=== PATIENT | male | born 1950 | race Caucasian/White ===

== ENCOUNTER 2018-01-06 08:39 | Emergency (ER) | payer OTHER, BC ==
[~2018-01-06] VITALS: Ht 175.3 cm; Wt 88.5 kg
[2018-01-06 08:41] VITALS: BP_SYST 157
--- NOTE | 2018-01-06 08:41 | NUR ---
Patient to ER bed 7, triaged at bedside.
--- NOTE | 2018-01-06 08:57 | NUR ---
ER Dr. Gupta at bedside examining patient.
[2018-01-06] MEDS ORDERED: KETOROLAC TROMETHAMINE 30 MG VIAL IVP ONE (09:00)
[2018-01-06 09:06] LABS: BILIRUBIN,URINE NEGATIVE (NEGATIVE); BLOOD, URINE 3+ (NEGATIVE); CLARITY/URINE CLOUDY (CLEAR); COLOR,URINE BROWN (YELLOW); GLUCOSE,URINE NEGATIVE (NEGATIVE); KETONES,URINE TRACE (NEGATIVE); LEUKOCYTE ESTERASE ,URINE TRACE (NEGATIVE); NITRITE, URINE POSITIVE (NEGATIVE); PH,URINE 6.5 (5.0-8.0); PROTEIN URINE 2+ (NEGATIVE)
--- NOTE | 2018-01-06 09:10 | NUR ---
Pt presents to ER c/o R flank pain 6/10 on pain scale that radiates to lower abdomen. Pt reports that pain began around 0600 this morning, also reports some nausea but denies vomiting. Pt denies any chest pain or sob. Pt in no acute distress, speaking full sentences, AOX4, ambulatory.
[2018-01-06] MEDS ORDERED: NACL 0.9% 1,000 ML IV ONE (09:15)
--- NOTE | 2018-01-06 09:19 | NUR ---
Pt returned from radiology in stable condition.
--- NOTE | 2018-01-06 09:34 | NUR ---
# 20 gauge angiocath placed to LAC. Use of asceptic technique. Opsite placed over site. Blood return noted. Blood for lab drawn from site. Flushed with 10 cc of normal saline. No evidence of infiltration noted. Patient tolerated well.
--- NOTE | 2018-01-06 09:40 | NUR ---
Pt medicated and tolerated well; will continue to monitor.
[2018-01-06 09:56] LABS: BACTERIA,URINE FEW /HPF (None Seen); RBC,URINE 80-100 /HPF (0-3)
[2018-01-06 09:57] LABS: MUCUS,URINE None Seen /LPF (None Seen); YEAST,URINE None Seen /HPF (None Seen)
[2018-01-06] MEDS ORDERED: cefTRIAXone 1 GM IVPB PREMIX 50 ML IV ONE (10:15)
--- NOTE | 2018-01-06 10:15 | NUR ---
Pt reports pain level down to 2/10 on pain scale. Will continue to monitor.
[2018-01-06 10:26] LABS: CALCIUM 9.7 mg/dL (8.4-11.0); CREATININE 0.99 mg/dL (0.55-1.30); POTASSIUM 3.5 mmol/L (3.5-5.1)
[2018-01-06 10:31] LABS: ALBUMIN 3.5 g/dL (3.4-4.8); TOTAL BILIRUBIN 0.7 mg/dL (0.0-1.0)
[2018-01-06 10:36] LABS: BASOPHILS % (AUTO) 0.1 % (0.0-2.0); EOSINOPHILS % (AUTO) 0.2 % (0.0-4.0); HEMATOCRIT 46.6 % (36-54); HEMOGLOBIN 15.9 g/dL (14.0-18.0); LYMPHOCYTES # (AUTO) 0.5 K/uL (1.0-5.5); LYMPHOCYTES % (AUTO) 5.5 % (20.5-51.5); MEAN CORPUSCULAR HEMOGLOBIN 29 pg (27-31); MEAN CORPUSCULAR HGB CONC 34 % (32-36); MEAN CORPUSCULAR VOLUME 84 fL (79.0-98.0); MONOCYTES # (AUTO) 0.3 K/uL (0.0-1.0); MONOCYTES % (AUTO) 3.6 % (1.7-9.3); NEUTROPHILS # (AUTO) 7.4 K/uL (1.8-7.7); NEUTROPHILS % (AUTO) 90.6 % (40.0-70.0); PLATELET COUNT (AUTO) 265 K/uL (130-430); RED BLOOD CELL COUNT(AUTO) 5.54 MIL/uL (4.2-6.2); RED CELL DISTRIBUTION WIDTH 13.5 % (9.0-15.0); WHITE BLOOD COUNT (AUTO) 8.2 K/uL (4.8-10.8)
[2018-01-06 10:50] VITALS: BP_SYST 144
--- NOTE | 2018-01-06 10:50 | NUR ---
Patient given written and verbal discharge instructions and verbalizes understanding. ER MD discussed with patient the results and treatment provided. Patient in stable condition. ID arm band removed. IV catheter removed intact and dressing applied, no active bleeding. Rx of Toradol and Cipro given. Patient educated on pain management and to follow up with PMD. Pain Scale 0. Opportunity for questions provided and answered. Medication side effect fact sheet provided.
== END 2018-01-06 10:50 | disposition home or self-care (01) ==
LOC: SED 08:39
DX: N20.0 Calculus of kidney (principal); N39.0 Urinary tract infection, site not specified; I10 Essential (primary) hypertension
CPT/HCPCS: 36415; 74176; 80053; 81000; 85025; 87086; 96365; 96375; 99285; J0696; J1885; J7030

== ENCOUNTER 2020-12-16 17:57 | Emergency (ER) | payer OTHER, MEDICARE ==
[~2020-12-16] VITALS: Ht 175.3 cm; Wt 81.6 kg
[2020-12-16 18:15] VITALS: BP_SYST 139
[2020-12-16] MEDS ORDERED: KETOROLAC TROMETHAMINE 60 MG/2 ML VIAL IM ONE (18:30)
[2020-12-16] MEDS ORDERED: KETOROLAC TROMETHAMINE 30 MG VIAL IVP ONE (18:30)
[2020-12-16] MEDS ORDERED: KETOROLAC TROMETHAMINE 30 MG VIAL ONE (18:35)
[2020-12-16 18:47] LABS: BASOPHILS % (AUTO) 0.5 % (0.0-2.0); EOSINOPHILS # (AUTO) 0.1 K/uL (0.0-0.4); EOSINOPHILS % (AUTO) 0.9 % (0.0-4.0); HEMATOCRIT 51.1 % (36-54); HEMOGLOBIN 16.8 g/dL (14.0-18.0); LYMPHOCYTES # (AUTO) 1.4 K/uL (1.0-5.5); LYMPHOCYTES % (AUTO) 15.3 % (20.5-51.5); MEAN CORPUSCULAR HEMOGLOBIN 29 pg (27-31); MEAN CORPUSCULAR HGB CONC 33 % (32-36); MEAN CORPUSCULAR VOLUME 87 fL (79.0-98.0); MONOCYTES # (AUTO) 0.6 K/uL (0.0-1.0); MONOCYTES % (AUTO) 6.7 % (1.7-9.3); NEUTROPHILS # (AUTO) 7.2 K/uL (1.8-7.7); NEUTROPHILS % (AUTO) 76.6 % (40.0-70.0); PLATELET COUNT (AUTO) 272 K/uL (130-430); RED BLOOD CELL COUNT(AUTO) 5.88 MIL/uL (4.2-6.2); RED CELL DISTRIBUTION WIDTH 15.1 % (9.0-15.0); WHITE BLOOD COUNT (AUTO) 9.4 K/uL (4.8-10.8)
[2020-12-16 18:56] LABS: BILIRUBIN,URINE NEGATIVE (NEGATIVE); BLOOD, URINE 3+ (NEGATIVE); CLARITY/URINE TURBID (CLEAR); COLOR,URINE BROWN (YELLOW); GLUCOSE,URINE NEGATIVE (NEGATIVE); KETONES,URINE 1+ (NEGATIVE); LEUKOCYTE ESTERASE ,URINE NEGATIVE (NEGATIVE); NITRITE, URINE POSITIVE (NEGATIVE); PROTEIN URINE 2+ (NEGATIVE)
[2020-12-16 19:02] LABS: ANION GAP 8 (5-15); CALCIUM 11.1 mg/dL (8.4-11.0); CHLORIDE 104 mmol/L (98-107); CREATININE 1.19 mg/dL (0.55-1.30); GLUCOSE 123 mg/dL (70-99); POTASSIUM 3.6 mmol/L (3.5-5.1); SODIUM SERUM 138 mmol/L (136-145); UREA NITROGEN, BLOOD 16 mg/dL (8-21)
[2020-12-16 19:09] LABS: GFR AFRICAN AMERICAN 78 mL/min (>90)
[2020-12-16 19:11] LABS: ALANINE AMINOTRANSFERASE 20 U/L (12-78); AMYLASE 46 U/L (0-100); ASPARTATE AMINOTRANSFERASE 19 U/L (10-37); LIPASE 66 U/L (73-393); TOTAL BILIRUBIN 1.2 mg/dL (0.0-1.0)
[2020-12-16 19:28] LABS: C-REACTIVE PROTEIN QUANT 0.6 mg/dL (0-0.5); INR 1.1 (0.80-1.20); PROTHROMBIN TIME 11.6 SECS (9.5-12.5)
[2020-12-16 19:47] LABS: BACTERIA,URINE MODERATE /HPF (None Seen); RBC,URINE >100 /HPF (0-3)
[2020-12-16 19:48] LABS: CALCIUM OXALATE CRYSTALS,UR 0-10 /HPF (None Seen); MUCUS,URINE None Seen /LPF (None Seen)
[2020-12-16] MEDS ORDERED: NITR-85 PO (20:41)
[2020-12-16] MEDS ORDERED: IBUP-1969 PO (20:41)
[2020-12-16] MEDS ORDERED: HYDR-3917 PO (20:41)
[2020-12-16] MEDS ORDERED: cefTRIAXone 1 GM in D5W 50 ML IV ONE (20:45)
[2020-12-16] MEDS ORDERED: cefTRIAXone 1 GM VIAL ONE (20:45)
[2020-12-16 21:03] VITALS: BP_SYST 128
== END 2020-12-16 21:03 | disposition home or self-care (01) ==
LOC: SED 17:57
DX: N39.0 Urinary tract infection, site not specified (principal); N20.0 Calculus of kidney; I10 Essential (primary) hypertension
CPT/HCPCS: 36415; 74176; 76376; 80053; 81000; 82150; 83690; 84484; 85025; 85610; 85730; 86140; 87086; 96365; 96375; 99284; J0696; J1885